=== PATIENT | female | born 1980 | race Caucasian/White ===

== ENCOUNTER 2017-03-18 21:50 | Emergency (ER) | payer MEDICAID ==
[2017-03-19 01:09] VITALS: BP 116/68
== END 2017-03-19 01:09 | disposition home or self-care (01) ==
LOC: ED 21:50
DX: M25.561 Pain in right knee (principal); R06.02 Shortness of breath; Z98.51 Tubal ligation status

== ENCOUNTER 2017-07-12 22:29 | Emergency (ER) | payer MEDICAID ==
[2017-07-13 02:04] VITALS: BP 99/53
== END 2017-07-13 02:04 | disposition home or self-care (01) ==
LOC: ED 22:29
DX: S83.91XA Sprain of unspecified site of right knee, initial encounter (principal); X50.1XXA Overexertion from prolonged static or awkward postures, initial encounter; Y93.41 Activity, dancing; Y99.8 Other external cause status; Y92.89 Other specified places as the place of occurrence of the external cause
CPT/HCPCS: J1885

== ENCOUNTER 2018-06-18 09:19 | Emergency (ER) | payer MEDICAID ==
[~2018-06-18] VITALS: Ht 152.4 cm; Wt 61.2 kg
[2018-06-18 09:32] VITALS: Ht 152.4 cm; Wt 61.2 kg
[2018-06-18 11:39] VITALS: BP 102/71
== END 2018-06-18 11:39 | disposition home or self-care (01) ==
LOC: ED 09:19
DX: K64.9 Unspecified hemorrhoids (principal)

== ENCOUNTER 2019-12-23 09:13 | Emergency (ER) | payer MEDICAID ==
[~2019-12-23] VITALS: Ht 152.4 cm; Wt 62.1 kg
[2019-12-23 09:39] VITALS: Ht 152.4 cm; Wt 62.1 kg
[2019-12-23 11:25] LABS: PLATELET COUNT 266 x10^3mcL (130-400)
[2019-12-23 11:27] LABS: BASOPHIL % 0 % (0-2); RED CELL DISTRIBUTION WIDTH 19.1 % (11.5-14.5)
[2019-12-23 11:32] LABS: CALCIUM 8.3 mg/dL (8.5-10.1); CARBON DIOXIDE 22.8 mmol/L (21-32); CHLORIDE SERUM 102 mmol/L (98-107); CREATININE SERUM 0.6 mg/dL (0.6-1.0); GFR1 > 60 mL/min; GLUCOSE SERUM 109 mg/dL (74-106); POTASSIUM SERUM 3.8 mmol/L (3.5-5.1); SODIUM SERUM 134 mmol/L (136-145)
[2019-12-23 11:43] LABS: ALKALINE PHOSPHATASE 69 U/L (46-116); ALT/SGPT 30 U/L (14-59); AST/SGOT 19 U/L (15-37); BILIRUBIN TOTAL 0.84 mg/dL (0.20-1.00); TOTAL PROTEIN, SERUM 7.5 g/dL (6.4-8.2)
[2019-12-23 11:57] LABS: ALBUMIN 3.3 g/dL (3.4-5.0)
[2019-12-23 15:02] VITALS: BP 95/53
== END 2019-12-23 15:02 | disposition home or self-care (01) ==
LOC: ED 09:13
PROVIDERS: Emergency Medicine
DX: R06.00 Dyspnea, unspecified (principal); R06.02 Shortness of breath; R51 Headache; R42 Dizziness and giddiness; R11.0 Nausea; R00.2 Palpitations; I10 Essential (primary) hypertension; E78.00 Pure hypercholesterolemia, unspecified; Z86.2 Personal history of diseases of the blood and blood-forming organs and certain disorders involving the immune mechanism
CPT/HCPCS: 85378; J7030; Q0092; Q9967